=== PATIENT | female | born 1945 | race African-American/Black ===

== ENCOUNTER → 2020-03-30 | Day surgery (SDC) | payer OTHER ==
[2020-03-29 15:28] VITALS: BMI 44.4
[~2020-03-30] MED LIST: CHONDROITIN SU A/HYALUR SOD 1 KIT ONE; EPINEPHrine/PF 1 MG/1 ML (1:1,000) AMPULE ONE; LIDOCAINE HCL/PF 1% SDV 5ML VIAL ONE; POVIDONE-IODINE 5% OPHTHALMIC PREP 30 ML SOLUTION ONE; TETRACAINE 0.5% OPHTH SOLN 2 ML BOTTLE ONE
== END | disposition home or self-care (01) ==
LOC: JASU-SURG 05:05
PROVIDERS: ATTEND Ophthalmology
DX: Z53.8 Procedure and treatment not carried out for other reasons (principal)